=== PATIENT | female | born 1945 | race Caucasian/White ===

== ENCOUNTER → 2020-08-30 16:50 | Outpatient (CLI) | payer MEDICARE, SELFPAY ==
[2020-08-30 17:08] LABS: Basophils % 0.8 % (0.1-2.0); Eosinophils # 0.1 K/mm3 (0.0-0.4); Eosinophils % 2.2 % (0.1-12.0); Hematocrit 43.3 % (37.0-47.0); Hemoglobin 13.2 g/dL (12.2-16.2); Lymphocytes # 1.9 K/mm3 (0.7-4.5); Lymphocytes % 37.3 % (10-50); Mean Corpuscular HGB Conc 30.5 g/dL (31.8-35.4); Mean Corpuscular Hemoglobin 29.3 pg (27.0-31.2); Mean Platelet Volume 8.2 fl (7.4-10.4); Monocytes # 0.4 K/mm3 (0.1-1.0); Neutrophils # 2.6 K/mm3 (1.8-7.8); Neutrophils % 52.6 % (37.0-80.0); Platelet Count 285 K/mm3 (142-424); Red Blood Count 4.51 M/mm3 (4.20-5.40); Red Cell Distribution Width 13.3 % (11.5-17.5)
[2020-08-30 17:28] LABS: Alanine Aminotransferase 14 U/L (12-78); Albumin Level 4.3 g/dl (3.5-5.0); Albumin/Globulin Ratio 1.7 (1.1-1.8); Alkaline Phosphatase 96 U/L (38-126); Anion Gap 14.1 mEq/L (5-15); Aspartate Amino Transferase 28 U/L (14-36); Bilirubin,Total 0.4 mg/dl (0.2-1.3); Blood Urea Nitrogen 19 mg/dl (7-17); Calcium 9.6 mg/dl (8.4-10.2); Carbon Dioxide 24 mmol/L (22.0-30.0); Chloride 107 mmol/L (98-107); Chol/HDL Ratio 3.5 (1-3.5); Cholesterol 171 mg/dl (140-200); Estimated Glomerular Filt Rate 61 ml/min (>60); GFR (African American) 74 ML/MIN (>60); Globulin 2.5 g/dL (1.3-3.2); Glucose 81 mg/dl (74-100); HDL Cholesterol 49 mg/dl (40-60); Potassium 5.1 mmoL/L (3.5-5.1); Sodium 140 mmol/L (136-145); Total Protein,Serum 6.8 g/dl (6.3-8.2); Triglycerides 176 mg/dl (30-150); VLDL Cholesterol 35 mg/dL (0-40)
[2020-08-30 17:39] LABS: Direct LDL Cholesterol 42.88 mg/dL (100-129)
[2020-08-30 17:44] LABS: T4 (Thyroxine) 9.5 ug/dl (5.53-11.0)
[2020-08-30 17:58] LABS: Thyroid Stimulating Hormone 3.42 uIU/mL (0.465-4.68)
== END ==
PROVIDERS: Visit Provider Nurse Practitioner Family
DX: E03.9 Hypothyroidism, unspecified (principal); Z00.00 Encounter for general adult medical examination without abnormal findings
CPT/HCPCS: 80053; 80061; 84436; 84443; 85025

== ENCOUNTER 2021-04-27 09:24 | Emergency (ER) | payer MEDICARE, SELFPAY ==
[2021-04-27 09:25] VITALS: BP 200/94; PULSE 67; RESP 18; TEMP 36.4; O2SAT 97; BMI 20.3
[2021-04-27 09:29] VITALS: BP 200/94; PULSE 70; O2SAT 98
--- NOTE | 2021-04-27 09:35 | XR_ITS ---
PROCEDURE INFORMATION: Exam: XR Chest Exam date and time: 04/27/2021 9:35 AM Age: 75 years old Clinical indication: Other: Dizziness TECHNIQUE: Imaging protocol: XR of the chest. Views: 2 views. COMPARISON: No relevant prior studies available. FINDINGS: Lungs: No consolidation. Pleural spaces: No pleural effusion. No pneumothorax. Heart/Mediastinum: No cardiomegaly. Bones/joints: There are degenerative changes of the spine. 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 IMPRESSION: There is no evidence of active pulmonary disease.
--- NOTE | 2021-04-27 09:38 | ECG_ITS ---
APPROVED REPORT Exam: Resting ECG HR:65 bpm ECG Measurements Heart Rate 65 AXES GA 132 P 89 QRSd 98 QRS 81 QT 470 T 97 QTc 488 Conclusion Normal sinus rhythm Nonspecific ST abnormality Abnormal ECG Electronically signed by : Stevie Aiken MD 04/28/2021 20:18:42
[2021-04-27 10:00] VITALS: BP 175/85; PULSE 66; O2SAT 99
[2021-04-27 10:00] LABS: Microscopic, Urine URINE MICROSCOPIC (MICROSCOPIC)
[2021-04-27 10:03] LABS: Basophils # 0.1 K/mm3 (0-0.2); Basophils % 0.9 % (0.1-2.0); Eosinophils # 0.1 K/mm3 (0.0-0.4); Hematocrit 44.5 % (37.0-47.0); Hemoglobin 14.6 g/dL (12.2-16.2); Lymphocytes # 1.6 K/mm3 (0.7-4.5); Lymphocytes % 24.2 % (10-50); Mean Corpuscular HGB Conc 32.7 g/dL (31.8-35.4); Mean Corpuscular Hemoglobin 31.4 pg (27.0-31.2); Mean Corpuscular Volume 96.1 fl (81-99); Mean Platelet Volume 8.1 fl (7.4-10.4); Monocytes # 0.3 K/mm3 (0.1-1.0); Monocytes % 4.3 % (1.7-9.3); Neutrophils # 4.5 K/mm3 (1.8-7.8); Neutrophils % 69.7 % (37.0-80.0); Platelet Count 285 K/mm3 (142-424); Red Blood Count 4.63 M/mm3 (4.20-5.40); Red Cell Distribution Width 13.3 % (11.5-17.5); White Blood Count 6.5 K/mm3 (4.8-10.8)
[2021-04-27 10:04] LABS: Chloride 104 mmol/L (98-107); Potassium 4.1 mmoL/L (3.5-5.1); Sodium 142 mmol/L (136-145)
--- NOTE | 2021-04-27 10:04 | HMH.EDDIZZ ---
ED Disposition Clinical Impression: Benign paroxysmal positional vertigo Qualifiers: Laterality: unspecified laterality Qualified Code(s): H81.10 - Benign paroxysmal vertigo, unspecified ear UTI (urinary tract infection) Qualifiers: Urinary tract infection type: acute cystitis Hematuria presence: without hematuria Qualified Code(s): N30.00 - Acute cystitis without hematuria Disposition: Home, Self-Care Condition on Discharge: Good Instructions: Urinary Tract Infection Prescriptions: cephALEXin [Cephalexin 500mg Tab] 500 mg PO BID #14 tab Transmission Status: Pending to [facility] Meclizine HCl [Meclizine 25mg Tab] 25 mg PO BID #10 tab Transmission Status: Pending to [id number] Referrals: Dylan Asif APRN [Primary Care Provider] - - Critical Care Critical Care Time: No Attestation: On 04/27/21, the high probability of a clinically significant, sudden or life threatening deterioration of the following system(s) required my full and direct attention, intervention and personal management. The time I documented below is in addition to time spent performing reported procedures but includes the following listed in this critical care notation. Medical Decision Making - Medical Records Medical records reviewed: Yes: I reviewed the patient's medical records. - Tao Inquiry Pt receiving controlled substance: No Vital Signs: 04/27/21 09:25 04/27/21 09:29 04/27/21 10:00 Temperature 97.6 F Temperature Source Oral Pulse Rate 70 66 Pulse Rate [Left Radial] 67 Respiratory Rate 18 Blood Pressure 200/94 H 175/85 H Blood Pressure [Right Arm] 200/94 H Blood Pressure Mean 139 Blood Pressure Mean [Right Arm] 129 Blood Pressure Source [Right Arm] Automatic Cuff Blood Pressure Position [Right Arm] Sitting 02 Sat by Pulse Oximetry 97 98 99 Oxygen Delivery Method Room Air 04/27/21 10:45 Temperature Temperature Source Pulse Rate 54 L Pulse Rate [Left Radial] Respiratory Rate Blood Pressure 179/88 H Blood Pressure [Right Arm] Blood Pressure Mean Blood Pressure Mean [Right Arm] Blood Pressure Source [Right Arm] Blood Pressure Position [Right Arm] 02 Sat by Pulse Oximetry 98 Oxygen Delivery Method - Lab Data Lab Results 04/27/21 09:48: WBC 6.5, RBC 4.63, Hgb 14.6, Hct 44.5, MCV 96.1, MCH 31.4 H, MCHC 32.7, RDW 13.3, Plt Count 285, MPV 8.1, Neut % (Auto) 69.7, Lymph % (Auto) 24.2, [place] % (Auto) 4.3, Eos % (Auto) 1.0, Baso % (Auto) 0.9, Neut # (Auto) 4.5, Lymph # (Auto) 1.6, [place] # (Auto) 0.3, Eos # (Auto) 0.1, Baso # (Auto) 0.1 04/27/21 09:48: Sodium 142, Potassium 4.1, Chloride 104, Carbon Dioxide 31 H, Anion Gap 11.1, BUN 11, Creatinine 0.70, Estimated Creat Clear 47, Estimated GFR 82, Est GFR ( Amer) 99, Glucose 131 H, Calcium 9.2, Total Bilirubin 0.3, AST 35, ALT 13, Alkaline Phosphatase 101, Troponin I < 0.01, Total Protein 7.2, Albumin 4.5, Globulin 2.7, Albumin/Globulin Ratio 1.7, TSH 2.80 04/27/21 09:48: Urine Color Yellow, Urine Appearance Sl cloudy, Urine pH 8.0, Ur Specific Marshall 1.020, Urine Protein 1+, Urine Glucose (UA) Negative, Urine Ketones Negative, Urine Blood Negative, Urine Nitrate Positive, Urine Bilirubin Negative, Urine Urobilinogen 0.2, Ur Leukocyte Esterase Negative, Urine RBC None, Urine WBC Occasional, Ur Squamous Epith Cells Occasional, Urine Bacteria 3+ Result diagrams: 04/27/21 09:48 04/27/21 09:48 Orders (Tests/Meds): ED MEDICATIONS Discontinued Medications Generic Name Dose Route Start Last Admin Trade Name Topher PRN Reason Stop Dose Admin Hydralazine HCl 10 mg 04/27/21 10:07 04/27/21 10:45 Hydralazine 20mg/Ml Vial IV 04/27/21 10:08 10 mg ONCE ONE Administration Meclizine HCl 25 mg 04/27/21 09:36 Meclizine 25mg Tablet PO 04/27/21 09:37 ONCE ONE Promethazine HCl 25 mg 04/27/21 09:37 04/27/21 09:40 Promethazine Hcl 25mg/Ml 1ml Vial IV 04/27/21 09:38 25 mg ONCE ONE Administ
[2021-04-27 10:06] LABS: Alanine Aminotransferase 13 U/L (12-78); Aspartate Amino Transferase 35 U/L (14-36); Blood Urea Nitrogen 11 mg/dl (7-17); Creatinine Clearance Estimated 47 mL/min (50-200); Estimated Glomerular Filt Rate 82 ml/min (>60); GFR (African American) 99 ML/MIN (>60)
[2021-04-27 10:07] LABS: Albumin Level 4.5 g/dl (3.5-5.0); Albumin/Globulin Ratio 1.7 (1.1-1.8); Alkaline Phosphatase 101 U/L (38-126); Anion Gap 11.1 mEq/L (5-15); Appearance,Urine SL CLOUDY (Clear); Bilirubin,Total 0.3 mg/dl (0.2-1.3); Bilirubin,Urine Negative (Negative); Blood, Urine Negative (Negative); Calcium 9.2 mg/dl (8.4-10.2); Carbon Dioxide 31 mmol/L (22.0-30.0); Color,Urine YELLOW (Yellow); Globulin 2.7 g/dL (1.3-3.2); Glucose 131 mg/dl (74-100); Glucose,Urine (UA) Negative (Negative); Ketones,Urine Negative (Negative); Leukocyte Esterase,Urine Negative (Negative); Nitrate,Urine POSITIVE (Negative); Protein,Urine 1+ (Negative); Total Protein,Serum 7.2 g/dl (6.3-8.2); Urobilinogen,Urine 0.2 EU/dl (0.2)
[2021-04-27 10:23] LABS: Troponin I < 0.01 ng/ml (0.00-0.034)
[2021-04-27 10:28] LABS: Bacteria,Urine 3+ /lpf; Squamous Epithelial Cell,Urine Occasional #/hpf (0-5); WBC,Urine Occasional #/hpf (0-3)
[2021-04-27 10:45] VITALS: BP 179/88; PULSE 54; O2SAT 98
[2021-04-27 11:48] VITALS: BP 153/78; PULSE 74; RESP 18; TEMP 36.4; O2SAT 97
== END 2021-04-27 11:49 | disposition home or self-care (01) ==
PROVIDERS: Emergency Provider Emergency Medicine; PCP Nurse Practitioner Family
DX: H81.10 Benign paroxysmal vertigo, unspecified ear (principal); N30.00 Acute cystitis without hematuria; E03.9 Hypothyroidism, unspecified
CPT/HCPCS: 71046; 80053; 81001; 84443; 84484; 85025; 87086; 87088; 87186; 93005; 96374; 96375; 99283

== ENCOUNTER → 2021-10-02 07:46 | Outpatient (CLI) | payer MEDICARE, SELFPAY ==
--- NOTE | 2021-10-02 07:47 | CA_ITS ---
APPROVED REPORT EXAM: Comprehensive 2D, Doppler, and color-flow Echocardiogram Cryptologic Supervisor: YOJANA Alba, RVS Ht: 5 ft 8 in Wt: 134lbs BSA: 1.72 BP: 160/88 mmHg Indications: abn ekg, Cp,dizziness, HTN Echo Enhancing Agent Comments: Patient appears to go into AFIB 2D Dimensions IVSd 1.03 cm LVEF (Visual) 63.10 % PWd 0.92 cm LA Volume 62.90 mL LVDd 4.66 cm LA Volume Index [id number] mL/m2 (M/F) 16-34 LVDs 3.07 cm Aortic Root 2.58 cm Left Atrium 3.72 cm LVOT 1.83 cm (M/F) 1.5-2.5 M-Mode Dimensions RVDd 2.22 cm (0.9-2.6) LA Diam 3.93 cm (1.9-4.0) LVDd 4.50 cm (3.5-5.7) Ao Diam 3.16 cm (2.0-3.7) LVDs 3.19 cm (3.5-5.7) IVSd 1.22 cm (0.6-1.1) PWd 1.03 cm (0.6-1.1) EF (Teich) 56.10% EPSs 0.38 cm FS 29.10% EDV (Teich) 92.40 mL TAPSE 2.30 (<1.7) ESV (Teich) 40.60 mL LV Diastology E Decel Time 210.00 (160-240 msec) E/A Ratio 0.88 MED E' 8.10 (< 7 cm/sec) MED A' 13.30 cm/s E'/MED E' Ratio 9.11 (>14) LAT E' 7.90 (<10 cm/sec) LAT A' 14.50 cm/s E/LAT E' Ratio 9.34 (>14) Pulm Vein s 29.00 cm/sec Pulm Vein d 20.00 cm/sec Ar-A Duration 167.00 msec Aortic Valve LVOT Max 89.00 (70-110 cm/s) LVOT VTI 20.93 cm AoV Peak Arpit. 198.00 (50-130 cm/s) AO Peak GR. 15.70 mmHg AO Mean GR. 7.90 (<5 mmHg) AO VTI 46.13 (18-25 cm) ALESSIO (VTI) 1.19 (2.5-4.5 cm2) Mitral Valve MV A Velocity 84.00 (40-130 cm/s) E/A Ratio 0.88 MV Decel. Time 210.00 (160-240 ms) MV Mean Gr. 1.00 (<2mmHg) MV PHT 60.00 ms Pulmonary Valve PV Peak Velocity 84.00 (50-150 cm/s) Tricuspid Valve TR P. Velocity 233.00 cm/s RAP Estimate 10.00 mmHg RVSP 31.80 mmHg Left Ventricle Left atrium is mildly enlarged, left ventricle is normal size, mild concentric left ventricular hypertrophy, estimated ejection fraction 55% with no regional wall motion abnormality, grade 1 diastolic dysfunction seen without tissue Doppler evidence of raise left atrial pressure. Right Ventricle Right atrium and right ventricle are normal size and contractility. Aortic Valve Aortic valve is thickened and calcified without Doppler evidence of aortic stenosis or aortic insufficiency. Mitral Valve Mitral valve leaflets are myxomatous, there is mild prolapse of the posterior mitral leaflet, there is no mitral stenosis, there is moderate mitral regurgitation. Tricuspid Valve Tricuspid valve is grossly normal, there is mild tricuspid regurgitation, calculated right ventricular systolic pressure is 32 mmHg. Pulmonic Valve Pulmonic valve is poorly visualized. Great Vessels Aortic root is normal size. Inferior vena cava is normal size with normal inspiratory collapse. Pericardium Trivial pericardial effusion noted. Conclusion 1. Mildly enlarged left atrium, normal left ventricular size, mild concentric left ventricular hypertrophy, visually estimated ejection fraction 55% with no regional wall motion abnormality, grade 1 diastolic dysfunction seen without tissue Doppler evidence of raise left atrial pressure. 2. 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 3. Mild tricuspid regurgitation, calculated right ventricular systolic pressure 32 mmHg. 4. Trivial pericardial effusion noted. 5. Inferior vena cava is normal size with normal inspiratory co
--- NOTE | 2021-10-02 07:47 | CA_ITS ---
FINAL REPORT CLINICAL HISTORY: Dizziness, Cardiac arrythmis, HTN FINDINGS: Aorta velocity: 58 cm/sec Right kidney: 9.0 cm. No evidence of hydronephrosis or mass. Right intrarenal RI: 0.70 Right renal artery velocity: 210 cm/sec. Right RAR (Renal artery-Aortic Ratio): 3.6 Left Kidney: 10.2 cm. No evidence of hydronephrosis or mass. Left intrarenal RI: 0.73 Left renal artery velocity: 190 cm/sec. Left RAR (Renal Artery-Aortic Ratio): 3.2 IMPRESSION: Findings worrisome for bilateral stenosis greater than 60%. Recommend CTA or catheter directed angiography. Reviewed, Interpreted and Dictated by Edi Palomo III, MD Transcribed by Jordan Thorpe Authenticated by Edi Palomo III, MD on 10/02/2021 10:26:37 AM [facility]
== END ==
PROVIDERS: PCP Nurse Practitioner Family; Visit Provider Nurse Practitioner Family
DX: I10 Essential (primary) hypertension (principal); R07.9 Chest pain, unspecified
CPT/HCPCS: 93306; 93976

== ENCOUNTER → 2021-10-03 10:36 | Outpatient (CLI) | payer MEDICARE, SELFPAY ==
[2021-10-03 11:28] LABS: Anion Gap 12.6 mEq/L (5-15); Blood Urea Nitrogen 19 mg/dl (7-17); Calcium 9.3 mg/dl (8.4-10.2); Carbon Dioxide 28 mmol/L (22.0-30.0); Chloride 106 mmol/L (98-107); Estimated Glomerular Filt Rate 61 ml/min (>60); GFR (African American) 74 ML/MIN (>60); Glucose 109 mg/dl (74-100); Potassium 4.6 mmoL/L (3.5-5.1); Sodium 142 mmol/L (136-145)
== END ==
PROVIDERS: Visit Provider Internal Medicine Cardiovascular Disease
DX: I10 Essential (primary) hypertension (principal); I70.1 Atherosclerosis of renal artery; R42 Dizziness and giddiness
CPT/HCPCS: 36415; 80048

== ENCOUNTER → 2021-10-13 13:18 | Outpatient (CLI) | payer MEDICARE, SELFPAY ==
--- NOTE | 2021-10-13 13:19 | CT_ITS ---
FINAL REPORT TECHNIQUE: Pre-and postcontrast images of the abdomen were performed by computed tomography. Extensive 3-D reconstruction images were performed. A CTA was performed. This study was performed with techniques to keep radiation doses as low as reasonably achievable (ALARA). Individualized dose reduction techniques using automated exposure control or adjustment of mA and/or kV according to the patient''s size were employed. CLINICAL HISTORY: eval renal for renal artery stenosis. Elevated Blood pressure. HTN meds not lowering BP FINDINGS: ABDOMEN: The lung bases are clear. Precontrast images demonstrate no evidence of nephrolithiasis. No adrenal masses are identified. There is a 1.4 cm mass at the lateral right liver dome consistent with a hemangioma. There is moderate right renal scarring. There is mild left renal scarring. The spleen and pancreas are unremarkable. Note is made of bilateral L5 pars defects with grade 2 anterolisthesis of L5 on S1 and severe L5-S1 neural foraminal narrowing. CTA: The abdominal aorta is proper caliber. There is no evidence of aneurysm or dissection. The proximal celiac and SMA are patent. There is significant, 70-80% stenosis of the proximal right renal artery just distal to its origin. There is no evidence of left renal artery stenosis. The JAMES is patent. The common iliac arteries are normal without evidence of aneurysm or dissection. IMPRESSION: Significant, 70-80% proximal right renal artery stenosis. Reviewed, Interpreted and Dictated by Edi Palomo III, MD Transcribed by Jeanna Aguilera Authenticated by Edi Palomo III, MD on 10/13/2021 03:36:49 PM [facility]
== END ==
PROVIDERS: PCP Nurse Practitioner Family; Visit Provider Physician Assistant
DX: I70.1 Atherosclerosis of renal artery (principal)
CPT/HCPCS: 74175; Q9967

== ENCOUNTER 2021-10-22 08:53 | Day surgery (SDC) | payer MEDICARE, SELFPAY ==
[2021-10-22] VITALS (43 sets, daily range): BP systolic 110–237; BP diastolic 47–111; PULSE 43–68; RESP 16–20; TEMP 36.9; O2SAT 92–99; BMI 20.2
--- NOTE | 2021-10-22 07:14 | IR_ITS ---
APPROVED REPORT Patient Location: Inpatient Outpatient PROCEDURES Bilateral selective renal angiogram Bare-metal stent deployment to the right renal artery INDICATION Renal artery stenosis, Renovascular hypertension, Abnormal renal duplex Informed consent was obtained prior to the procedure. COMPLICATIONS None Estimated Blood Loss: Less than 10 ML TECHNIQUE 1% lidocaine used to anesthetize the right femoral groin. The right femoral artery was accessed via the Seldinger technique. A 4 Omani sheath was placed in the right femoral artery. The JR4 catheter was used to selectively intubate each renal artery. At the end of the diagnostic angiogram therapeutic heparin was administered and the 4 Omani sheath was exchanged for 7 Omani sheath. A short FLORES guide catheter was used to intubate the right renal artery followed by a Choice PT extra-support wire. A 6 mm x 12 mm Herculink stent was deployed at 16 juan jose reducing the severe stenosis to 0%. At the end of the procedure the apparatus was removed the patient was transferred to the postop putting in stable condition for sheath removal ANGIOGRAPHIC RESULTS Left renal artery singular normal Right renal artery singular and has an ostial 80% concentric stenosis IMPRESSION Severe right renal artery stenosis Successful stenting the right renal artery severe disease reduced to 0% with 1 bare-metal stent PLAN 1. Aspirin Plavix for 1 month 2. Risk factor modification 3. Evaluation of ischemic heart disease if relevant Electronically signed by : Austin Pabon MD 10/22/2021 12:27:18
[2021-10-22 09:02] LABS: Coronavirus 19, PCR Not Detected (NotDetected); Influenza A, PCR Not Detected (NotDetected); Influenza B, PCR Not Detected (NotDetected)
[2021-10-22 09:15] LABS: Basophils # 0.1 K/mm3 (0-0.2); Basophils % 0.9 % (0.1-2.0); Eosinophils # 0.1 K/mm3 (0.0-0.4); Eosinophils % 2.1 % (0.1-12.0); Hematocrit 42.3 % (37.0-47.0); Hemoglobin 13.7 g/dL (12.2-16.2); Lymphocytes # 1.7 K/mm3 (0.7-4.5); Lymphocytes % 25.4 % (10-50); Mean Corpuscular HGB Conc 32.5 g/dL (31.8-35.4); Mean Corpuscular Hemoglobin 31.1 pg (27.0-31.2); Mean Corpuscular Volume 95.8 fl (81-99); Mean Platelet Volume 8.2 fl (7.4-10.4); Monocytes # 0.4 K/mm3 (0.1-1.0); Monocytes % 6.1 % (1.7-9.3); Neutrophils # 4.3 K/mm3 (1.8-7.8); Neutrophils % 65.4 % (37.0-80.0); Platelet Count 300 K/mm3 (142-424); Red Blood Count 4.42 M/mm3 (4.20-5.40); Red Cell Distribution Width 13.9 % (11.5-17.5); White Blood Count 6.5 K/mm3 (4.8-10.8)
[2021-10-22 09:23] LABS: Anion Gap 12.1 mEq/L (5-15); Blood Urea Nitrogen 18 mg/dl (7-17); Calcium 9.2 mg/dl (8.4-10.2); Carbon Dioxide 28 mmol/L (22.0-30.0); Chloride 106 mmol/L (98-107); Creatinine Clearance Estimated 47 mL/min (50-200); Estimated Glomerular Filt Rate 54 ml/min (>60); GFR (African American) 66 ML/MIN (>60); Glucose 92 mg/dl (74-100); Potassium 4.1 mmoL/L (3.5-5.1); Sodium 142 mmol/L (136-145)
[2021-10-22 14:01] LABS: CATHL Activated Clotting Time 285 SEC (74-125)
--- NOTE | 2021-10-22 17:52 | PC.NURSE ---
Pt has done well since arriving to the floor. Pt has been bradycardic, HR 50-60's, but remains asymptomatic. Pt continues to lie flat, supine in bed. Rt groin cath site dressind CDI, small hematoma noted at site but not any larger than when it was shown by [facility] Rn RN. Pt has been pleasant. No other acute changes. Will monitor.
[2021-10-23] VITALS: BP 145/68; PULSE 57; RESP 18; TEMP 37.1; O2SAT 96
[2021-10-23 00:37] VITALS: PULSE 50
[2021-10-23 04:00] VITALS: BP 160/73; PULSE 50; PULSE 53; RESP 18; TEMP 36.7; O2SAT 98
[2021-10-23 05:00] VITALS: BMI 20.9
[2021-10-23 06:38] LABS: Basophils # 0.1 K/mm3 (0-0.2); Basophils % 1.6 % (0.1-2.0); Eosinophils # 0.1 K/mm3 (0.0-0.4); Hematocrit 38.1 % (37.0-47.0); Hemoglobin 12.6 g/dL (12.2-16.2); Lymphocytes % 29.5 % (10-50); Mean Corpuscular HGB Conc 33.1 g/dL (31.8-35.4); Mean Corpuscular Hemoglobin 31.8 pg (27.0-31.2); Mean Corpuscular Volume 96.1 fl (81-99); Mean Platelet Volume 8.5 fl (7.4-10.4); Monocytes # 0.4 K/mm3 (0.1-1.0); Neutrophils # 4.2 K/mm3 (1.8-7.8); Platelet Count 246 K/mm3 (142-424); Red Blood Count 3.97 M/mm3 (4.20-5.40); Red Cell Distribution Width 14.1 % (11.5-17.5); White Blood Count 6.9 K/mm3 (4.8-10.8)
[2021-10-23 06:49] LABS: Anion Gap 9.9 mEq/L (5-15); Blood Urea Nitrogen 17 mg/dl (7-17); Calcium 8.5 mg/dl (8.4-10.2); Carbon Dioxide 23 mmol/L (22.0-30.0); Chloride 111 mmol/L (98-107); Creatinine Clearance Estimated 49 mL/min (50-200); Estimated Glomerular Filt Rate 61 ml/min (>60); GFR (African American) 74 ML/MIN (>60); Glucose 90 mg/dl (74-100); Potassium 3.9 mmoL/L (3.5-5.1); Sodium 140 mmol/L (136-145)
[2021-10-23 08:00] VITALS: BP 170/97; PULSE 50; RESP 15; TEMP 36.9; O2SAT 97
--- NOTE | 2021-10-23 08:53 | HMH.PHACLD ---
Ale Randall has received discharge medication counseling on the following medications: BISOPROLOL ASPIRIN PLAVIX ATORVASTATIN LISINOPRIL ALL NEW MEDICATION WERE SENT TO [facility]. PATIENT VERBALIZED UNDERSTANDING AND HAD NO QUESTIONS AT THIS TIME. -CANDELARIA KENNY, CARINED
== END 2021-10-23 09:17 | disposition home or self-care (01) ==
LOC: CATHLAB 08:57 → 2ND 14:45
PROVIDERS: PCP Nurse Practitioner Family; Visit Provider Internal Medicine
DX: I10 Essential (primary) hypertension (principal); I70.1 Atherosclerosis of renal artery; R93.5 Abnormal findings on diagnostic imaging of other abdominal regions, including retroperitoneum; R94.31 Abnormal electrocardiogram [ECG] [EKG]; Z79.899 Other long term (current) drug therapy; Z20.822 Contact with and (suspected) exposure to COVID-19; I77.1 Stricture of artery
CPT/HCPCS: 36251; 36415; 37236; 80048; 85025; 85347; 99152; C1725; C1769; C1876; C1894; C9803; J1644; J2720; Q9967; U0003; U0005

== ENCOUNTER → 2022-03-02 08:37 | Outpatient (CLI) | payer MEDICARE, SELFPAY ==
--- NOTE | 2022-03-02 08:37 | XR_ITS ---
FINAL REPORT TECHNIQUE: Bone densitometry calculations of the lumbar spine and each hip were obtained. CLINICAL HISTORY: . post menopausal FINDINGS: DEXA BONE DENSITY AXIAL SKELETON Using L1-4, the bone mineral density of the spine is 0.854 g/cm2, corresponding to T-score of -1.8. Using the left hip, the bone mineral density of the femoral neck is 0.591 g/cm2, corresponding to a T-score of -2.9. Using the right hip, the bone mineral density of the femoral neck is 0.566 g/cm2, corresponding to a T-score of -2.6. NOTE: T-score: Standard deviation compared with peak bone mass of young adult mean. *Following the recommendations of the International Society of Bone Densitometry, classification of hip BMD is based on the lower of two T-scores; total hip or femoral neck. IMPRESSION: Osteoporosis: Lowest T-score is at or below -2.5. This patient's T-score meets the World Health Organization criteria for osteoporosis. Reviewed, Interpreted and Dictated by Aftab Potter MD Transcribed by Ramonita Lancaster Authenticated and [facility]
--- NOTE | 2022-03-02 08:37 | MM_ITS ---
PROCEDURE INFORMATION: Exam: Bilateral Screening 3D Mammography Exam date and time: 03/02/2022 8:34 AM Age: 76 years old Clinical indication: Screening. No family history of breast cancer. TECHNIQUE: Imaging protocol: Bilateral Screening tomosynthesis and 2D mammography including computer-aided detection (CAD) when performed. COMPARISON: No relevant prior studies available.If prior mammograms are provided, I am happy to add an addendum. FINDINGS: MAMMOGRAPHY: Breast composition: The breasts are heterogeneously dense, which may obscure small masses. Mass: None. Architectural distortion: None. Calcifications: A few benign-appearing calcifications including a macro calcification, measuring 2.6 cm, in the left upper outer quadrant. No suspicious calcifications. Asymmetric density: None. Skin thickening: None. Axillary adenopathy: None. IMPRESSION: No mammographic evidence of malignancy. Annual screening is recommended unless otherwise clinically indicated. ASSESSMENT: BI-RADS Category 2: Benign
== END ==
PROVIDERS: PCP Physician Assistant; Visit Provider Physician Assistant
DX: Z12.31 Encounter for screening mammogram for malignant neoplasm of breast (principal); Z78.0 Asymptomatic menopausal state
CPT/HCPCS: 77063; 77067; 77080

== ENCOUNTER → 2022-05-20 14:26 | Outpatient (CLI) | payer MEDICARE, SELFPAY ==
[2022-05-20 18:28] LABS: Basophils # 0.1 K/mm3 (0-0.2); Basophils % 0.7 % (0.1-2.0); Eosinophils # 0.2 K/mm3 (0.0-0.4); Eosinophils % 3.3 % (0.1-12.0); Hematocrit 43.3 % (37.0-47.0); Hemoglobin 13.5 g/dL (12.2-16.2); Lymphocytes # 1.9 K/mm3 (0.7-4.5); Lymphocytes % 27.1 % (10-50); Mean Corpuscular HGB Conc 31.2 g/dL (31.8-35.4); Mean Corpuscular Hemoglobin 30.3 pg (27.0-31.2); Mean Platelet Volume 9.5 fl (7.4-10.4); Monocytes # 0.4 K/mm3 (0.1-1.0); Monocytes % 6.2 % (1.7-9.3); Neutrophils # 4.4 K/mm3 (1.8-7.8); Neutrophils % 62.7 % (37.0-80.0); Platelet Count 356 K/mm3 (142-424); Red Blood Count 4.46 M/mm3 (4.20-5.40); Red Cell Distribution Width 12.8 % (11.5-17.5); White Blood Count 7.1 K/mm3 (4.8-10.8)
[2022-05-20 18:58] LABS: Alanine Aminotransferase 25 U/L (12-78); Albumin Level 4.2 g/dl (3.5-5.0); Albumin/Globulin Ratio 1.7 (1.1-1.8); Alkaline Phosphatase 116 U/L (38-126); Anion Gap 13.9 mEq/L (5-15); Aspartate Amino Transferase 36 U/L (14-36); Bilirubin,Total 0.6 mg/dl (0.2-1.3); Blood Urea Nitrogen 29 mg/dl (7-17); Calcium 9.7 mg/dl (8.4-10.2); Carbon Dioxide 26 mmol/L (22.0-30.0); Chloride 109 mmol/L (98-107); Chol/HDL Ratio 2.3 (1-3.5); Cholesterol 95 mg/dl (140-200); Estimated Glomerular Filt Rate 44 ml/min (>60); GFR (African American) 53 ML/MIN (>60); Globulin 2.5 g/dL (1.3-3.2); Glucose 96 mg/dl (74-100); HDL Cholesterol 42 mg/dl (40-60); Potassium 4.9 mmoL/L (3.5-5.1); Sodium 144 mmol/L (136-145); Total Protein,Serum 6.7 g/dl (6.3-8.2); Triglycerides 91 mg/dl (30-150); VLDL Cholesterol 18 mg/dL (0-40)
[2022-05-20 19:14] LABS: Direct LDL Cholesterol < 30.00 mg/dL (100-129)
[2022-05-20 19:15] LABS: 25-OH Vitamin D, Total 47.7 ng/mL (30-100)
[2022-05-20 19:28] LABS: Thyroid Stimulating Hormone 3.28 uIU/mL (0.465-4.68)
== END ==
PROVIDERS: PCP Physician Assistant; Visit Provider Physician Assistant
DX: M81.0 Age-related osteoporosis without current pathological fracture (principal); E03.9 Hypothyroidism, unspecified
CPT/HCPCS: 80053; 80061; 82306; 84443; 85025

== ENCOUNTER → 2022-11-17 23:20 | Outpatient (CLI) | payer MEDICARE, SELFPAY ==
[2022-11-17 19:12] LABS: Basophils % 0.5 % (0.1-2.0); Eosinophils # 0.2 K/mm3 (0.0-0.4); Eosinophils % 2.7 % (0.1-12.0); Hematocrit 43.5 % (37.0-47.0); Hemoglobin 13.8 g/dL (12.2-16.2); Lymphocytes # 1.9 K/mm3 (0.7-4.5); Lymphocytes % 34.4 % (10-50); Mean Corpuscular HGB Conc 31.6 g/dL (31.8-35.4); Mean Corpuscular Hemoglobin 30.6 pg (27.0-31.2); Mean Corpuscular Volume 96.7 fl (81-99); Mean Platelet Volume 9.4 fl (7.4-10.4); Monocytes # 0.4 K/mm3 (0.1-1.0); Monocytes % 6.6 % (1.7-9.3); Neutrophils % 55.9 % (37.0-80.0); Platelet Count 303 K/mm3 (142-424); Red Cell Distribution Width 12.7 % (11.5-17.5); White Blood Count 5.4 K/mm3 (4.8-10.8)
[2022-11-17 20:04] LABS: Alanine Aminotransferase 27 U/L (12-78); Albumin Level 4.4 g/dl (3.5-5.0); Albumin/Globulin Ratio 1.6 (1.1-1.8); Alkaline Phosphatase 93 U/L (38-126); Anion Gap 18.1 mEq/L (5-15); Aspartate Amino Transferase 43 U/L (14-36); Bilirubin,Total 0.8 mg/dl (0.2-1.3); Blood Urea Nitrogen 21 mg/dl (7-17); Calcium 9.5 mg/dl (8.4-10.2); Carbon Dioxide 26 mmol/L (22.0-30.0); Chloride 103 mmol/L (98-107); Chol/HDL Ratio 1.9 (1-3.5); Cholesterol 104 mg/dl (140-200); Estimated Glomerular Filt Rate 44 ml/min (>60); GFR (African American) 53 ML/MIN (>60); Globulin 2.7 g/dL (1.3-3.2); Glucose 102 mg/dl (74-100); HDL Cholesterol 56 mg/dl (40-60); Potassium 5.1 mmoL/L (3.5-5.1); Sodium 142 mmol/L (136-145); Total Protein,Serum 7.1 g/dl (6.3-8.2); Triglycerides 98 mg/dl (30-150); VLDL Cholesterol 20 mg/dL (0-40)
[2022-11-17 20:20] LABS: Direct LDL Cholesterol < 30.00 mg/dL (100-129)
[2022-11-17 20:25] LABS: 25-OH Vitamin D, Total 48.7 ng/mL (30-100)
[2022-11-17 20:38] LABS: Thyroid Stimulating Hormone 3.13 uIU/mL (0.465-4.68)
[2022-11-17 20:58] LABS: Vitamin B12 578 pg/mL (239-931)
== END ==
PROVIDERS: PCP Physician Assistant; Visit Provider Physician Assistant
DX: E03.9 Hypothyroidism, unspecified (principal); M81.0 Age-related osteoporosis without current pathological fracture
CPT/HCPCS: 80053; 80061; 82306; 82607; 84443; 85025

== ENCOUNTER 2023-11-17 08:56 | Outpatient (CLI) | payer MEDICARE, SELFPAY ==
[2023-11-17 18:25] LABS: Basophils # 0.1 K/mm3 (0-0.2); Basophils % 2.5 % (0.1-2.0); Eosinophils # 0.4 K/mm3 (0.0-0.4); Eosinophils % 7.1 % (0.1-12.0); Hematocrit 44.2 % (37.0-47.0); Hemoglobin 13.9 g/dL (12.2-16.2); Lymphocytes # 1.5 K/mm3 (0.7-4.5); Lymphocytes % 26.4 % (10-50); Mean Corpuscular HGB Conc 31.4 g/dL (31.8-35.4); Mean Corpuscular Hemoglobin 31.1 pg (27.0-31.2); Mean Corpuscular Volume 99.4 fl (81-99); Mean Platelet Volume 9.2 fl (7.4-10.4); Monocytes # 0.4 K/mm3 (0.1-1.0); Monocytes % 6.3 % (1.7-9.3); Neutrophils # 3.3 K/mm3 (1.8-7.8); Neutrophils % 57.7 % (37.0-80.0); Platelet Count 398 K/mm3 (142-424); Red Blood Count 4.45 M/mm3 (4.20-5.40); Red Cell Distribution Width 13.5 % (11.5-17.5); White Blood Count 5.7 K/mm3 (4.8-10.8)
[2023-11-17 19:11] LABS: Alanine Aminotransferase 24 U/L (12-78); Albumin/Globulin Ratio 1.5 (1.1-1.8); Alkaline Phosphatase 105 U/L (38-126); Anion Gap 14.1 mEq/L (5-15); Aspartate Amino Transferase 39 U/L (14-36); Bilirubin,Total 0.6 mg/dl (0.2-1.3); Blood Urea Nitrogen 25 mg/dl (7-17); Calcium 9.9 mg/dl (8.4-10.2); Carbon Dioxide 28 mmol/L (22.0-30.0); Chloride 105 mmol/L (98-107); Chol/HDL Ratio 1.9 (1-3.5); Cholesterol 110 mg/dl (140-200); Estimated Glomerular Filt Rate 37 ml/min (>60); GFR (African American) 44 ML/MIN (>60); Globulin 2.7 g/dL (1.3-3.2); Glucose 92 mg/dl (74-100); HDL Cholesterol 57 mg/dl (40-60); Potassium 5.1 mmoL/L (3.5-5.1); Sodium 142 mmol/L (136-145); Total Protein,Serum 6.7 g/dl (6.3-8.2); Triglycerides 96 mg/dl (30-150); VLDL Cholesterol 19 mg/dL (0-40)
[2023-11-17 19:24] LABS: Direct LDL Cholesterol 36.62 mg/dL (100-129)
[2023-11-17 19:27] LABS: 25-OH Vitamin D, Total 48.9 ng/mL (30-100)
[2023-11-17 19:46] LABS: Thyroid Stimulating Hormone 3.78 uIU/mL (0.465-4.68)
== END 2023-11-17 23:59 | disposition home or self-care (01) ==
LOC: LAB.DROPOF 11-19 08:57
PROVIDERS: PCP Physician Assistant; Visit Provider Physician Assistant
DX: R53.83 Other fatigue (principal); I10 Essential (primary) hypertension; E03.9 Hypothyroidism, unspecified; E55.9 Vitamin D deficiency, unspecified; E78.5 Hyperlipidemia, unspecified; Z68.20 Body mass index [BMI] 20.0-20.9, adult
CPT/HCPCS: 80050; 80053; 80061; 82306; 84443; 85025

== ENCOUNTER 2024-11-23 14:18 | Outpatient (CLI) | payer MEDICARE, SELFPAY ==
[2024-11-23 19:45] LABS: Alanine Aminotransferase 19 U/L (12-78); Albumin Level 4.4 g/dl (3.5-5.0); Albumin/Globulin Ratio 1.6 (1.1-1.8); Alkaline Phosphatase 94 U/L (38-126); Anion Gap 9.1 mEq/L (5-15); Aspartate Amino Transferase 36 U/L (14-36); Bilirubin,Total 0.7 mg/dl (0.2-1.3); Blood Urea Nitrogen 22 mg/dl (7-17); Calcium 9.6 mg/dl (8.4-10.2); Carbon Dioxide 29 mmol/L (22.0-30.0); Chloride 106 mmol/L (98-107); Chol/HDL Ratio 2.2 (1-3.5); Cholesterol 105 mg/dl (140-200); Estimated Glomerular Filt Rate 40 ml/min (>60); GFR (African American) 48 ML/MIN (>60); Globulin 2.7 g/dL (1.3-3.2); Glucose 95 mg/dl (74-100); HDL Cholesterol 47 mg/dl (40-60); Potassium 5.1 mmoL/L (3.5-5.1); Sodium 139 mmol/L (136-145); Total Protein,Serum 7.1 g/dl (6.3-8.2); Triglycerides 117 mg/dl (30-150); VLDL Cholesterol 23 mg/dL (0-40)
[2024-11-23 20:12] LABS: Thyroid Stimulating Hormone 3.21 uIU/mL (0.465-4.68)
[2024-11-23 20:14] LABS: Direct LDL Cholesterol < 30.00 mg/dL (100-129)
--- OUTSIDE RECORDS SUMMARY | 2024-11-24 23:47 | XMS_ITS ---
Author Organization Unknown TREATMENT PLAN [facility] Start Date Provider Encounter for Check-up [id number] [facility]
== END 2024-11-23 23:59 | disposition home or self-care (01) ==
LOC: LAB.DROPOF 11-24 23:46
PROVIDERS: PCP Family Medicine; Visit Provider Family Medicine
DX: E03.9 Hypothyroidism, unspecified (principal); I10 Essential (primary) hypertension; E78.5 Hyperlipidemia, unspecified
CPT/HCPCS: 80053; 80061; 84443

== ENCOUNTER 2025-03-29 11:39 | Outpatient (CLI) | payer MEDICARE, SELFPAY ==
[2025-03-29 20:02] LABS: Alanine Aminotransferase 23 U/L (12-78); Albumin Level 4.1 g/dl (3.5-5.0); Albumin/Globulin Ratio 1.7 (1.1-1.8); Alkaline Phosphatase 115 U/L (38-126); Anion Gap 13.4 mEq/L (5-15); Aspartate Amino Transferase 37 U/L (14-36); Bilirubin,Total 0.7 mg/dl (0.2-1.3); Blood Urea Nitrogen 20 mg/dl (7-17); Calcium 9.7 mg/dl (8.4-10.2); Carbon Dioxide 28 mmol/L (22.0-30.0); Chloride 104 mmol/L (98-107); Creatinine,Serum 1.40 mg/dl (0.52-1.04); Estimated Glomerular Filt Rate 36 ml/min (>60); GFR (African American) 44 ML/MIN (>60); Globulin 2.4 g/dL (1.3-3.2); Glucose 101 mg/dl (74-100); Potassium 5.4 mmoL/L (3.5-5.1); Sodium 140 mmol/L (136-145); Total Protein,Serum 6.5 g/dl (6.3-8.2)
[2025-03-29 20:17] LABS: Free T4 (Free Thyroxine) 1.18 ng/dl (0.78-2.19)
[2025-03-29 20:31] LABS: Thyroid Stimulating Hormone 3.00 uIU/mL (0.465-4.68)
== END 2025-03-29 23:59 ==
LOC: LAB.DROPOF 04-02 11:40
PROVIDERS: PCP Family Medicine; Visit Provider Family Medicine
DX: E03.9 Hypothyroidism, unspecified (principal); I10 Essential (primary) hypertension
CPT/HCPCS: 80053; 84439; 84443

== ENCOUNTER 2025-04-27 08:09 | Outpatient (CLI) | payer MEDICARE, SELFPAY ==
[2025-04-27 22:06] LABS: Anion Gap 13.9 mEq/L (5-15); Blood Urea Nitrogen 19 mg/dl (7-17); Calcium 9.9 mg/dl (8.4-10.2); Carbon Dioxide 26 mmol/L (22.0-30.0); Chloride 104 mmol/L (98-107); Creatinine,Serum 1.20 mg/dl (0.52-1.04); Estimated Glomerular Filt Rate 43 ml/min (>60); GFR (African American) 53 ML/MIN (>60); Glucose 104 mg/dl (74-100); Potassium 4.9 mmoL/L (3.5-5.1); Sodium 139 mmol/L (136-145)
== END 2025-04-27 23:59 | disposition home or self-care (01) ==
LOC: LAB.DROPOF 04-28 08:10
PROVIDERS: PCP Family Medicine; Visit Provider Family Medicine
DX: E87.5 Hyperkalemia (principal)
CPT/HCPCS: 80048